=== PATIENT | female | born 1960 | race Caucasian/White ===

== ENCOUNTER 2018-06-01 07:28 | Day surgery (SDC) | payer OTHER | END 2018-06-01 15:00 | disposition home or self-care (01) | LOC: CIR.AMB 07:28 | DX: M67.432 Ganglion, left wrist (principal) ==

== ENCOUNTER 2019-07-28 15:34 | Emergency (ER) | payer OTHER ==
[~2019-07-28] VITALS: Ht 157.5 cm; Wt 73.9 kg
== END 2019-07-28 18:43 | disposition home or self-care (01) ==
LOC: ER 15:34
DX: M25.552 Pain in left hip (principal)

== ENCOUNTER → 2025-01-02 | Day surgery (SDC) | payer OTHER ==
[2024-12-29 10:10] LABS: HEMATOCRIT 40.7 % (36.0-45.00); HEMOGLOBIN 13.4 g/dL (12.0-15.00); MEAN CELL VOLUME 86.6 fL (80.00-100.00); MEAN CORPUSCULAR HEMOGLOBIN 28.5 pg (27.00-32.0); MEAN CORPUSCULAR HGB CONC 32.9 g/dl (32.0-36.0); PLATELET COUNT 213 K/uL (150-450); RED CELL DISTRIBUTION WIDTH 13.9 % (11.5-14.5)
[2024-12-29 10:46] LABS: PH,URINE 6.5 (5.0-8.0); URINE APPEARANCE Clear; URINE BILIRRUBIN Negative (NEGATIVE); URINE BLOOD Negative; URINE COLOR Yellow; URINE GLUCOSE Negative (NEGATIVE); URINE KETONE Negative (NEGATIVE); URINE LEUKOCYTE Small; URINE NITRATE Negative; URINE PROTEIN Negative (NEGATIVE); URINE UROBILINOGEN 0.2 E.U./dl
[2024-12-29 10:48] LABS: URINE BACTERIA 13.4 uL (0.0-1933); URINE EPITHELIAL CELLS 3.6 uL (0.0-38.8); URINE RBC 2.9 uL (0.0-20.8); URINE WBC 14.5 uL (0.0-23.2)
[2024-12-29 10:49] LABS: INR 0.97; PARTIAL THROMBOPLASTIN TIME 26.2 SECONDS (22.0-34.0); PROTHROMBIN TIME 10.6 SECONDS (9.0-11.5)
[2024-12-29 11:13] LABS: ALBUMIN 3.6 gm/dL (3.4-5.0); BILIRUBIN TOTAL 0.46 mg/dL (0.3-1.2); CALCIUM 8.9 mg/dL (8.5-10.1); CREATININE SERUM 0.65 mg/dL (0.55-1.02); GFR 91.19; GLOBULINA 3.3 G/DL (2.4-3.5); POTASSIUM 3.93 mEq/L (3.5-5.1); TOTAL PROTEIN 6.9 gm/dL (6.4-8.2)
[~2025-01-02] MED LIST: BUPIVACAINE HCL 30 ML VIAL IJ ONE; CLINDAMYCIN HC300 MG PO; DIBUCAINE 30 GM TUBE RECTAL ONE; HEMOSTATIC MATRIX 1 KIT KIT TOP ONE; LIDOCAINE HCL 1%/EPINEPHRINE 20ML VIAL IJ ONE; METRONIDAZOLE/SODIUM CHLORIDE 500 MG/100 ML PIGGYBACK IV SCH; POVIDONE-IODINE 118 ML BOTT TOP ONE; levoFLOXacin IN DEXTROSE 5 % 5 MG/ML PIGGYBAG IV SCH
== END | disposition home or self-care (01) ==
LOC: ADM 12-29 09:15 → CIR.AMB 05:41
PROVIDERS: ATTEND Colon & Rectal Surgery
DX: D12.9 Benign neoplasm of anus and anal canal (principal); D12.7 Benign neoplasm of rectosigmoid junction; K62.0 Anal polyp; Z88.0 Allergy status to penicillin